=== PATIENT | female | born 1950 | race Caucasian/White ===

== ENCOUNTER 2017-06-24 11:28 | Emergency (ER) | payer OTHER ==
[2017-06-24 11:37] VITALS: BP 142/67; PULSE 75; RESP 16; TEMP 97.9; O2SAT 99
--- NOTE | 2017-06-24 12:39 | EDPHY ---
H & P Smoking Status: Never smoked Time Seen by Provider: 06/24/17 12:33 HPI/ROS: CHIEF COMPLAINT: Left great toe injury HISTORY OF PRESENT ILLNESS: 67-year-old female states that last evening she dropped a heavy water bottle onto her left great toe is complaining of pain to same location. Reproducible pain with palpation range of motion. No deformity no angulation PHYSICAL EXAM (Prior to examination, patient consented to physical exam, hands were washed and my usual and customary physical exam procedures followed) 1) GENERAL: Well-developed, well-nourished, alert and oriented. Appears to be in no acute distress. 2) HEAD: Normocephalic 3) HEENT: sclera anicteric 4) LUNGS: Breathing comfortably. 5) SKIN: Intact. 6) MUSCULOSKELETAL: Tender to palpation 1st MTP of left toe . No signs of infection. Normal color normal temperature and brisk capillary refill 7) NEUROLOGIC: Full sensation (Yared Ramirez) Constitutional: Initial Vital Signs Temperature (C) 36.6 C 06/24/17 11:34 Heart Rate 75 06/24/17 11:34 Respiratory Rate 16 06/24/17 11:34 Blood Pressure 142/67 H 06/24/17 11:34 O2 Sat (%) 99 06/24/17 11:34 O2 Delivery Mode Room Air Allergies/Adverse Reactions: Penicillins Allergy (Verified 06/24/17 11:37) aspirin Allergy (Uncoded 06/24/17 11:37) codeine Allergy (Uncoded 06/24/17 11:38) Home Medications: Medication Instructions Recorded NK [No Known Home Meds] 06/24/17 MDM/Departure - MDM Imaging Results: Images reviewed myself (Yared Ramirez) ED Course/Re-evaluation: Care of patient under supervision of secondary supervising physician Dr Crystal Suarez . (Yared Ramirez) The patient was evaluated and managed by the physician fire control assistant. I have reviewed this chart and I agree with the findings and plan of care as documented , as indicated by my signature. I am the secondary supervising physician. ( Crystal Suarez) - Depart Disposition: Home, Routine, Self-Care Clinical Impression: Sprain of left great toe Qualifiers: Encounter type: initial encounter Qualified Code(s): S93.502A - Unspecified sprain of left great toe, initial encounter Condition: Good Instructions: Foot Contusion (ED) Additional Instructions: Return to the ER immediately if you experience discoloration, have worsening pain, numbness, tingling, or any other symptoms that concern you. If you received x-rays in the emergency department today, be advised, that ligamentous , tendon, muscular, and other non-bony injury cannot be fully ruled out. Try to keep your affected extremity elevated above the level of your chest, and keep cold packs on the affected area, for the next 48 hours. Referrals: Denny Sue MD [Doctor of Podiatric Medicine] - 2-3 days, call for appt.
== END 2017-06-24 13:10 | disposition home or self-care (01) ==
DX: S93.502A Unspecified sprain of left great toe, initial encounter (principal); W20.8XXA Other cause of strike by thrown, projected or falling object, initial encounter; Y99.8 Other external cause status